=== PATIENT | female | born 2000 | race Caucasian/White ===

== ENCOUNTER → 2023-06-24 | Outpatient (CLI) | payer BC ==
[~2023-06-24] VITALS: Ht 170.2 cm; Wt 75.0 kg
[~2023-06-24] MED LIST: AMOX250S5 PO; COUGH MEDICINE PO; FLT05NA16 NSEACH; GADOTERATE 0.5 MMOL/ML (CLARISCAN) 15 ML VIAL IV ONE; HYDR473S16 PO; IOHEXOL 300 MG/ML 50 ML (OMNIPAQUE 300) VIAL IV ONE; LIDOCAINE 1% INJ 10 ML VIAL INJ ONE; LIDOCAINE 1% INJ 10 ML VIAL ONE; [UNRECOGNIZED DRUG - OTHER] PO; tetracaine lollipops PO
--- NOTE | 2023-06-24 16:39 | Diagnostic Imaging Report ---
PROCEDURE: MRI left joint upper extremity with contrast. TECHNIQUE: Multiplanar, multisequence contrast-enhanced MRI of the left upper extremity was accomplished. INDICATION: Left elbow pain COMPARISON: None FINDINGS: No acute fracture is seen in the left elbow. Alignment appears normal. The joint is well distended with contrast. The ulnar collateral ligament appears intact. (Image 6 series 5). The radial collateral ligamentous complex is intact. The origins of the common flexor and common extensor tendons appear intact. The distal biceps and brachialis tendons are incompletely shown on axial imaging, but appear to be intact. The triceps tendon appears intact. There is mild fluid signal at the lateral side of the elbow which is likely from the recent injection. No fluid collections or masses are seen. There is no focal muscular atrophy. An MRI marker is seen at the posterior medial aspect of the elbow. This overlies the ulnar nerve, but the ulnar nerve appears normal in caliber and course along the cubital tunnel. The median nerve is unremarkable. IMPRESSION: 1. No acute abnormality is seen in the left elbow. Dictated by: Dictated on workstation # [id number]
--- NOTE | 2023-06-25 09:42 | Diagnostic Imaging Report ---
INDICATION: Left elbow injury and left elbow pain. Patient is brought to the procedure room placed on table in the supine position. The lateral left elbow was prepped and draped usual sterile fashion. Small amount of 1% lidocaine was utilized for local anesthesia. 23-gauge needle was advanced place with its tip in the radiocapitellar space. Approximately 5 mL solution of iodinated contrast, normal saline and gadolinium was injected under fluoroscopic observation. 32 seconds of fluoroscopic time was utilized. Dose was 24.5 mg. 2 images were obtained. The patient tolerated the procedure well and was sent to MRI in satisfactory condition. IMPRESSION: Successful left elbow injection of gadolinium contrast solution for MRI. Dictated by: Dictated on workstation # [id number]
== END ==
LOC: RAD 14:00
DX: M25.522 Pain in left elbow (principal)
CPT/HCPCS: 24220; 73085; 73222